=== PATIENT | female | born 1975 | race Caucasian/White ===

== ENCOUNTER 2022-02-02 22:35 | Observation (INO) ==
[2022-02-03] MEDS ORDERED: Naloxone 0.4 MG/ML INJ IVP PRN (00:22)
[2022-02-03] MEDS ORDERED: Ondansetron 4 MG/2 ML VIAL IVP PRN (00:22)
[2022-02-03] MEDS ORDERED: *HR* Heparin 5,000 UNIT/ML VIAL IVP PRN (00:24)
[2022-02-03] MEDS ORDERED: Morphine Sulfate 2 MG/ML SYRINGE IVP PRN (00:26)
[2022-02-03] MEDS ORDERED: D5% in Water 1,000 ML IVC PRN (00:28)
[2022-02-03] MEDS ORDERED: *HR* Dextrose 50 % in Water (Syg) 50 ML SYRINGE IVP PRN (00:28)
[2022-02-03] MEDS ORDERED: Dextrose 4 GM Chewable Tablets PO PRN ×2 (00:28)
[2022-02-03] MEDS ORDERED: Heparin 25,000UNIT/250ML 1/2NS 25,000 UNIT/250 ML IV.SOLN IVC SCH (00:30)
[2022-02-03 01:48] LABS: Hematocrit 46.7 % (35.3-44.9); Hemoglobin 15.9 g/dL (11.5-15.4); Mean Corpuscular Hemoglobin 29.2 pg (28.0-33.3); Mean Corpuscular Volume 85.7 fL (83.0-100.0); Mean Platelet Volume 10.2 fL (9.4-12.4); Platelet Count 268 K/mcL (140-400); Red Blood Count 5.45 M/mcL (3.82-4.97); Red Cell Distribution Width 12.9 % (11.5-14.5)
[2022-02-03 02:10] LABS: Alanine Aminotransferase 21 Units/L (7-52); Albumin/Globulin Ratio 1.2 (1.1-2.2); Alkaline Phosphatase 52 Units/L (34-104); Aspartate Amino Transferase 67 Units/L (13-39); BUN/Creatinine Ratio 16 (6-26); Bilirubin,Total 0.5 mg/dL (0.3-1.0); Blood Urea Nitrogen 10 mg/dL (6-20); Calcium 9.4 mg/dL (8.6-10.3); Carbon Dioxide 23 mEq/L (23-29); Chloride 104 mEq/L (98-107); Chol/HDL Ratio 6.5 (0-4.9); Cholesterol 222 mg/dL (< 200); Globulin 3.3 g/dL (2.4-3.5); Glucose 245 mg/dL (70-105); HDL Cholesterol 34 mg/dL (40-59); LDL Cholesterol,Calculated 136 mg/dL (< 100); Osmolality,Calculated 289 (280-300); Potassium 3.9 mEq/L (3.5-5.1); Sodium 136 mEq/L (136-145); Total Protein 7.3 g/dL (6.4-8.9); Triglycerides 260 mg/dL (< 150); eGFR For African Americans > 60 (> 60); eGFR For Non-African Americans > 60 (> 60)
[2022-02-03 02:19] LABS: Troponin I 8.73 ng/mL (< 0.04)
[2022-02-03] MEDS: *HR* Heparin 5,000 UNIT/ML VIAL IVP PRN ×2 (03:32→10:18)
[2022-02-03] MEDS ORDERED: Perflutren Lipid Microsphere 1.3 ML in 0.9 % Sodium Chloride 8.7 ML IVP PRN (07:21)
[2022-02-03] MEDS ORDERED: Saliva Stimulant 44.3ml BOTTLE PO PRN (08:14)
[2022-02-03] MEDS: Insulin LISPRO 300 UNITS/3 ML VIAL SUBQ SCH ×3 (08:30→18:02)
[2022-02-03] MEDS: Nicotine 21 MG PATCH.TD24 TD SCH (08:47)
[2022-02-03] MEDS ORDERED: Aspirin 81 MG TAB.CHEW PO SCH (09:00)
[2022-02-03] MEDS: carvediloL 6.25 MG TABLET PO SCH ×2 (09:03→17:35)
[2022-02-03 09:05] LABS: Estimated Average Glucose 194 mg/dl; Hemoglobin A1C 8.4 %
[2022-02-03 09:32] LABS: INR 1.1
[2022-02-03 09:34] LABS: Activated Partial Thrombo Time 43.7 Seconds (26.0-36.0)
[2022-02-03 10:34] LABS: Amphetamine Screen,Urine Positive ng/mL (Cutoff=1000); Barbiturate Screen,Urine Negative ng/mL (Cutoff=200); Benzodiazepines Screen,Urine Negative ng/mL (Cutoff=200); Cannabinoid Screen,Urine Negative ng/mL (Cutoff = 50); Cocaine Screen,Urine Negative ng/mL (Cutoff= 300); Opiate Screen,Urine Positive ng/mL (Cutoff=300); Phencyclidine Screen,Urine Negative ng/mL (Cutoff=25)
[2022-02-03] MEDS ORDERED: ISOVUE-370 200 ML INFUS..BTL ONE ×2 (12:20→13:35)
[2022-02-03] MEDS ORDERED: Heparin 1,000 UNITS/500 mL 500 ML ONE ×2 (12:20→13:54)
[2022-02-03] MEDS ORDERED: 0.9 % Sodium Chloride 1,000 ML ONE ×2 (12:20→12:31)
[2022-02-03] MEDS ORDERED: Nitroglycerin 1,000 MCG/5 ML VIAL IV ONE (12:20)
[2022-02-03] MEDS ORDERED: *HR* Heparin 10,000 UNIT/10 ML VIAL ONE (12:20)
[2022-02-03] MEDS ORDERED: *HR* FentaNYL (PF) 100 MCG/2 ML VIAL ONE (12:56)
[2022-02-03] MEDS ORDERED: *HR* Midazolam HCl 5 MG/5 ML VIAL IVP ONE (12:57)
[2022-02-03] MEDS ORDERED: *HR* Bivalirudin 250 MG VIAL IVC ONE (13:20)
[2022-02-03] MEDS ORDERED: *HR* Ticagrelor 90 MG TABLET ONE (14:00)
[2022-02-03] MEDS ORDERED: Nitroglycerin 0.4 MG TAB.SUBL SL PRN (14:19)
[2022-02-03] MEDS ORDERED: 0.9 % Sodium Chloride 1,000 ML IVC SCH (14:30)
[2022-02-03] MEDS: Ipratropium/Albuterol Neb 3 ML IH SCH ×2 (15:42→20:32)
[2022-02-03] MEDS ORDERED: *HR* Atropine Sulfate 1 MG/10 ML SYRINGE ONE (16:42)
[2022-02-03 17:42] LABS: Basophils % 0.4 %; Eosinophils # 0.1 K/mcL (0.0-0.6); Eosinophils % 0.5 %; Immature Granulocytes % 0.4 % (0-4); Lymphocytes % 26.2 %; Monocytes # 0.6 K/mcL (0.0-1.3); Monocytes % 5.3 %; Neutrophils # 7.7 K/mcL (1.6-8.9); Segmented Neutrophils % 67.2 %
[2022-02-03] MEDS: *HR* Ticagrelor 90 MG TABLET PO SCH (20:55)
[2022-02-04] MEDS: Insulin LISPRO 300 UNITS/3 ML VIAL SUBQ SCH ×3 (02:20→12:17)
[2022-02-04] MEDS: Ipratropium/Albuterol Neb 3 ML IH SCH ×3 (04:10→16:13)
[2022-02-04] MEDS: *HR* Ticagrelor 90 MG TABLET PO SCH (07:45)
[2022-02-04] MEDS: carvediloL 6.25 MG TABLET PO SCH (07:45)
[2022-02-04 07:53] LABS: Hematocrit 44.9 % (35.3-44.9); Hemoglobin 15.5 g/dL (11.5-15.4); Mean Corpuscular HGB Conc 34.5 g/dL (31.6-35.5); Mean Corpuscular Hemoglobin 29.4 pg (28.0-33.3); Mean Corpuscular Volume 85.2 fL (83.0-100.0); Mean Platelet Volume 10.3 fL (9.4-12.4); Platelet Count 268 K/mcL (140-400); Red Blood Count 5.27 M/mcL (3.82-4.97); Red Cell Distribution Width 12.6 % (11.5-14.5); White Blood Count 12.3 K/mcL (4.3-11.1)
[2022-02-04 08:17] LABS: BUN/Creatinine Ratio 13 (6-26); Blood Urea Nitrogen 7 mg/dL (6-20); Calcium 9.4 mg/dL (8.6-10.3); Carbon Dioxide 24 mEq/L (23-29); Chloride 102 mEq/L (98-107); Glucose 159 mg/dL (70-105); Magnesium 1.8 mg/dL (1.6-2.6); Osmolality,Calculated 283 (280-300); Phosphorous 4.1 mg/dL (2.7-4.5); Potassium 3.6 mEq/L (3.5-5.1); Sodium 136 mEq/L (136-145); eGFR For African Americans > 60 (> 60); eGFR For Non-African Americans > 60 (> 60)
[2022-02-04] MEDS: Nicotine 21 MG PATCH.TD24 TD SCH (08:28)
[2022-02-04] MEDS ORDERED: Aspirin 81 MG TAB.CHEW PO SCH (09:00)
[2022-02-04] MEDS ORDERED: lisinopriL 5 MG TABLET PO SCH (11:45)
[2022-02-04 15:57] VITALS: BP 111/63; PULSE 82; TEMP 97.8
[2022-02-04 16:14] VITALS: O2SAT 99
[2022-02-04] MEDS ORDERED: carvediloL 6.25 MG TABLET PO SCH (17:00)
== END 2022-02-04 17:13 | disposition home or self-care (01) ==
LOC: 2NNU → SUATTDRO 23:54
PROVIDERS: ADMIT Internal Medicine; ATTEND Internal Medicine